=== PATIENT | female | born 1990 | race Caucasian/White ===

== ENCOUNTER → 2017-07-05 | Day surgery (SDC) | payer MEDICARE, MEDICAID ==
[2017-07-05] VITALS (14 sets, daily range): BP systolic 121–146; BP diastolic 75–95; PULSE 80–109; RESP 12–23; O2SAT 88–97
[~2017-07-05] VITALS: Ht 162.6 cm; Wt 109.3 kg
[~2017-07-05] MED LIST: ALBU18HF INH; AMT50T PO; CHOL-4 PO; CITA20TA11 PO; CYCL10TA9 PO; Clindamycin 900 mg/50 mL D5W Premix IV ONE; Clindamycin Inj 900 MG in IV Premix 1 EACH IV SCH; Dexamethasone 4 mg/mL Inj IVPUSH PRN; Dexamethasone 4 mg/mL Inj ONE; EPHEDrine Sulfate 50 mg/mL Inj IVPUSH PRN; Glycopyrrolate 0.2 MG/ML 1mL Inj ONE; HYDR-4003 PO; Ketamine 10 mg/mL 20 mL Inj ONE; LAMO100T2 PO; LIDO15CR9 TP; LORA10CA9 PO; Lactated Ringer's 1,000 ML IV SCH; Lactated Ringer's 500 ML IV PRN; METH5TAB88 PO; MetoCLOpramide 5 mg/mL 2 mL Inj IVPUSH PRN; Neostigmine 1 mg/mL 10 mL Inj ONE; ONDA-53 PO; Ondansetron 2 mg/mL 2 mL Inj IVPUSH PRN; Ondansetron 2 mg/mL 2 mL Inj ONE; PREG100C PO; Phenylephrine 10,000 mCg/mL Inj IVPUSH PRN; RANI150C4 PO; fentaNYL-PF 50 mCg/mL 2 mL Inj IVPUSH PRN; fentaNYL-PF 50 mCg/mL 2 mL Inj ONE
[2017-07-05] MEDS: Lactated Ringer's 1,000 ML IV SCH ×2 (11:16→12:10)
--- NOTE | 2017-07-05 11:47 | PCM.HPANE ---
Patient Data Surgeon Admitting Provider: Attending Provider:Conrado Vaughn MD Primary Care Physician:Jesica Huyhn DO Other Provider:Rosie Keller Anesthesia Reason for Visit Bilateral Breast Macromastia,Back Pain,Rash Ht/WT & BMI Height (Feet): 5 Height (Inches): 4 Weight (Kilograms): 109.3 Body Mass Index 41.00 Allergies Coded Allergies: cephalexin (Verified Allergy, Severe, Anaphylaxis, 07/03/17) aripiprazole (Verified Allergy, Unknown, UNKNOWN, 07/03/17) hydromorphone (Verified Allergy, Unknown, UNKNOWN, 07/03/17) meperidine (Verified Allergy, Unknown, UNKNOWN, 07/03/17) naproxen (Verified Allergy, Unknown, UNKNOWN, 07/03/17) azithromycin (Verified Adverse Reaction, Severe, Nausea,Vomiting,Diarrhea , 07/03/17) codeine (Verified Adverse Reaction, Severe, GI issues, 07/03/17) Past Anesthesia History Anesthesia History: Positive for:: Anesthesia Reactions (quit breathing during surgery at one time), Denies:: Abnormal Airway, Difficult Intubation, Fam Anesthesia Reaction ( mother difficult to awaken), Fam Malignant Hypertherm Diabetes History Hx Diabetes?: No MRSA MRSA: No Medications Hypertension Medication: No Home Meds Incl Beta Maury: No Reported Medications Methylphenidate 5 Mg Tablet5 Mg PO PRN #60 07/05/17 Albuterol Sulfate (Ventolin HFA Inhaler)200 Puff/18 Gm Inhaler2 Puff INH Q4 PRN For Wheezing #1 INHALER Ref 0 06/29/17 Ranitidine 150 Mg [id number] Mg PO BID Ref 0 06/29/17 Ondansetron 4 Mg Tablet4 Mg PO Q4H PRN For Nausea 06/29/17 Pregabalin (Lyrica)100 Mg Ceegrms559 Mg PO BID 30 Days Ref 0 06/29/17 Loratadine 10 Mg Facmqyd86 Mg PO DAILY 06/29/17 Lidocaine 5 % Cream..g.15 Gm TP PRN For Pain 06/29/17 Lamotrigine 100 Mg Gszdbv484 Mg PO DAILY Ref 0 06/29/17 Hydrocodone-Acetaminophen 5-325 mg 1 Each Tablet2 Tablet PO Q6H PRN For Pain Ref 0 06/29/17 Cyclobenzaprine 10 Mg Kfqjds73 Mg PO QPM Spasm Ref 0 06/29/17 Cyclobenzaprine 10 Mg Yditka52 Mg PO QAM Ref 0 06/29/17 Citalopram 20 Mg Jmathb02 Mg PO DAILY Ref 0 06/29/17 Amitriptyline 50 Mg Tab50 Mg PO BID Ref 0 06/29/17 Discontinued Reported Medications Cholecalciferol (Vitamin D3) (Vitamin D3)10,000 Unit Aakbrxx27,000 Unit PO WEEKLY 06/29/17 [lidoderm ] No Conflict CheckUnknown Dose TOPICAL DAILY PRN For Pain 05/21/16 Ondansetron (Zofran)4 Mg Tablet4-8 Mg PO Q4H PRN For Nausea 05/21/16 Loratadine (Claritin)10 Mg Nqsjwsz93 Mg PO DAILY Ref 0 05/21/16 Ranitidine 300 Mg Bexdfh576 Mg PO BID Ref 0 05/21/16 Methylphenidate 5 Mg Tablet5 Mg PO BID Ref 0 05/20/16 Prazosin 5 Mg Vorusci01 Mg PO HS 30 Days 09/13/14 Ibuprofen 400 Mg Tablet1-2 Tab PO Q4-6H PRN For Pain Ref 0 09/13/14 [lidocaine 5%] No Conflict Check1 Appl TP BID PRN For Pain 09/13/14 Citalopram 20 Mg Ebuohj04 Mg PO DAILY 30 Days Ref 0 09/13/14 Cyclobenzaprine 10 Mg Blomqh87 Mg PO HS Ref 0 09/13/14 Cyclobenzaprine 10 Mg Fuqgxp65 Mg PO AM Ref 0 09/13/14 Clonidine 0.1 Mg Tablet0.1 Mg PO HS 30 Days Ref 0 09/13/14 Pregabalin (Lyrica)100 Mg Irydpue127 Mg PO BID 30 Days Ref 0 09/13/14 Amitriptyline 50 Mg Tab50 Mg PO BID Ref 0 09/13/14 Albuterol Sulfate (Ventolin HFA Inhaler)200 Puff/18 Gm Inhaler2 Puff INH Q4-6H PRN For Shortness of Breath #1 INHALER Ref 0 09/13/14 Discontinued Scripts Hydrocodone-Acetaminophen 7.5-325 mg 1 Each Tablet1-2 Tablet PO Q4H PRN For Pain #15 TABLET Ref 0 Prov:Kyle Centeno MD 05/22/16 History History of ENT Problems?: Yes HEENT History: Positive for:: Sinus Problem Denies:: Abnormal Airway Cataracts Difficult Intubation Dysphagia Glaucoma Hearing Problem TMJ Denture Type: None Teeth Condition: Broken Teeth No Teeth Hx of Heart Problems?: No Cardiovascular History: Positive for:: Chest Pain (possibly related to stress) Denies:: AICD Abdominal Aortic Aneurism Atrial Fibrillation Edema Heart Murmur Hypertension Irregular Heartbeat Valvular Heart Disease Hx of Respiratory Problem?: Yes Respiratory History: Positive for:: Asthma (sports induced ) Cough Dyspnea (BRANDON) Use of Inhalers / NEBS Denies:: COPD Emphysema Oxygen Administration Pneumonia Tuberculosis Use of C-PAP Machine Hx Neurologic Problems?: Yes Neurological History: Positive for:: Dizziness Headaches (migraines daily ) Denies:: Alzheimer's Disease CVA Multiple Sclerosis Parkinson's Disease Seizures Hx of GI Problems?: Yes Hx of Problems?: No Genitourinary History: Denies:: Kidney Stones Urinary Tract Infection (prior hx of ) Female Hx: Positive for:: Problems with Breasts? (macromastia current admission problem) Denies:: Currently Skin History: Denies:: History Skin Disorders? Pressure Ulcers Hx Musculoskeletal Problems?: Yes Musculoskeletal History: Positive for:: Fibromyalgia Denies:: Back Injury Degenerative Joint Musculoskeletal Trauma Myasthenia Gravis Osteoarthritis Hx of Psycho/Social Problems?: Yes Psycho Social History: Positive for:: Anxiety (PTSD) Hx Depression Denies:: Bipolar Disorder Hx Surgeries?: Yes (nash, tonsil, rt wrist ) Hx Any Other Health Problems?: Yes Other History: Positive for:: Thyroid Disease Denies:: Cancer Endocrine Disease Hospitalization History Blood Transfusions: Positive for:: Accept Blood Products? Denies:: Blood Transfusions Hx Diabetes: No Hx Alcohol Use: NoHx Substance Use: No Smoking Status: Never Smoker Have You Smoked inLast 12 mo: No Stop/Bang S-Snoring: Do You Snore Loudly: No T-Tired: feel tired, fatigued: No O-Obsered: Observed not breath: No P-Blood Pressure: treated: No B- Body Mass Index > 35 kg/m2: Yes A- Age over 50: No N- Neck Large Circumference: Yes Risk Assessment Category Category 1A: Patient has history of documented sleep apnea, and HAS NOT received any narcotic, sedative or anesthesia administration during this stay. Category 1B: Patient has history of documented sleep apnea, and HAS received any narcotic , sedative or anesthesia administration during this stay Category 2: Patient has SUSPECTED Obstructive Sleep Apnea, and HAS received any narcotic , sedative or anesthesia administration during this stay. Category 3: Patient has SUSPECTED Obstructive Sleep Apnea and HAS NOT received narcotic, sedative or anesthesia administration during this stay. Category 4: Outpatient in Procedural Areas with known sleep apnea or who screen positive for High Risk via the STOP/BANG questionnaire. Exam Exam Vital Signs Vital Signs Date Time Temp Pulse Resp B/P Pulse Ox O2 Delivery O2 Flow Rate FiO2 07/05/17 11:43 35.8 109 20 141/79 95 Room Air General Appearance: Alert, Oriented X3, Cooperative, No Acute Distress HEENT/AIRWAY: MP 3 Lungs: Normal Air Movement Heart: Regular Rate/Rhythm Meds/Labs/Diagnostics Admission Meds Current Medications Lactated Ringer's (Lr) 1,000 ml @ 120 mls/hr Q8H20M IV Last administered on t 11:16; Start 07/05/17 at 05:00; Stop 07/05/17 at 13:19 Plan Impression Patient chart reviewed, patient interviewed and anesthestic plan with risks, benefits, and alternatives discussed, and informed consent obtained. ASA Physical Status: ASA3 Severe Disease Anesthetic Plan: GA Bene/Risks/Altern/Consents: Yes HP Complete Prior to Induction: Yes Esteban Valdovinos MD Jul 05, 2017 11:47
[2017-07-05] MEDS: oxyCODONE-Acetamin 5-325 mg Tablet PO PRN ×2 (15:28→16:22)
--- NOTE | 2017-07-05 15:53 | PCM.ANEP1 ---
Post Anesthesia PACU Phase 1 Assessment Vital Signs Vital Signs Date Time Temp Pulse Resp B/P Pulse Ox O2 Delivery O2 Flow Rate FiO2 07/05/17 15:45 86 22 129/76 97 OxyMask 6 07/05/17 15:30 36.5 88 14 127/77 94 OxyMask 07/05/17 15:20 99 20 130/83 91 OxyMask 07/05/17 15:15 99 14 133/75 91 OxyMask 07/05/17 15:10 99 18 137/83 88 Nasal Cannula 5 07/05/17 15:00 95 19 132/83 93 Simple Mask 07/05/17 14:50 99 18 140/86 92 Simple Mask 07/05/17 14:45 109 21 131/81 92 Simple Mask 07/05/17 14:40 109 23 137/86 90 Simple Mask 10 07/05/17 14:35 36.4 109 22 146/81 90 Simple Mask 10 07/05/17 11:43 35.8 109 20 141/79 95 Room Air Anesthetic Administered: GA Level of Alertness: Awake, talking Pain: No Nausea or Vomiting: No CV Function & Hydration Stable: Yes Airway Device: None Lungs: Normal Air Movement PACU Phase 2 Assessment Complications: No Follow up Care: N/A Patient Instructions Provided: N/A Esteban Valdovinos MD Jul 05, 2017 15:53
--- NOTE | 2017-07-07 12:29 | OP ---
[address] [address] OPERATIVE REPORT PATIENT: CARRINGTON RESENDEZ : 1990 MR#: [id number] ADMIT: 07/05/2017 JOB ID: [id number] DATE OF SURGERY: 07/05/2017 PREOPERATIVE DIAGNOSIS(ES): 1. Bilateral symptomatic macromastia. 2. Thoracic back pain. 3. Rash. POSTOPERATIVE DIAGNOSIS(ES): 1. Bilateral symptomatic macromastia. 2. Thoracic back pain. 3. Rash. PROCEDURE: Bilateral breast reduction. SURGEON: Conrado Vaughn MD TRAUMA COORDINATOR: Ayush Nicole PA-C who was present for the necessary retraction, exposure, and closure. ANESTHESIA: General anesthesia. ESTIMATED BLOOD LOSS: 40 mL. COMPLICATIONS: None apparent. SPECIMEN: Bilateral breast tissue to Pathology. Right side weighing 1.45 kg and left side 0.92 kg. DRAINS: Bilateral 15 round Sebas drains, one each side. INDICATIONS FOR PROCEDURE: This is a 27-year-old female patient with a chronic symptomatic bilateral macromastia with significant neck pain and back pain. The patient also has a rash as well as bra strap grooving. Her symptoms have been refractory to routine management and conservative treatment. At this point bilateral breast reductions are indicated. PROCEDURE AND FINDINGS: The patient was identified in the preoperative area and the surgical side was well marked. With the patient in sitting position, I marked the patient's sternal notch and midline, as well as bilateral inframammary folds. Figueroa pattern incisions were also marked with the new nipple position at 22 cm from the sternal notch. The Figueroa limbs were 8 cm each. The patient was then taken back to the operating room and placed supine on the operating table. Appropriate time-outs were taken. General anesthesia was induced smoothly. The patient was then prepped and draped in the usual sterile manner. Using a 42 mm nipple sizer a new nipple-areolar complex was marked. The inferior pedicle was then designed that is 10 cm at its base. Incisions were then made around the new nipple-areolar complex and the inferior pedicle. Intervening skin was de-epithelialized. Incisions were then made around the rest of the Figueroa pattern incision with a #15 blade down into the subcutaneous tissue. I first turned my attention to elevating the skin flaps. Using electrocautery, the medial soft superior skin flap was elevated approximately 2 cm thick. As I approached the chest wall, the flap was thickened to approximately 3 cm as I approached the pectoralis major fascia. Laterally, the skin flap was elevated off of the breast capsule. I then turned my attention to developing the inferior pedicle. Incisions were then deepened down around the pedicle toward the chest wall. Medially and laterally I flared the dissection outward to capture more perforators. Medially the dissection was carried down to the pec fascia and laterally dissection was carried down to the chest wall. Superiorly I carried the dissection through the breast tissue until I encountered the posterior breast capsule, which was then followed down to the chest wall. The skin and soft tissue between the pedicle dissection and the skin flap dissection was then elevated off the chest wall and passed off to Pathology as a specimen. Hemostasis was obtained with electrocautery. The incisions were then temporarily stapled together. Using a 42 mm nipple sizer, the new nipple areolar complex keyhole was then marked 7 cm from the inframammary fold. Incision was made with a #15 blade through the skin. I then deepened the incision through the skin flap with electrocautery, allowing the nipple to be externalized. I then turned my attention to the left breast, where a similar reduction was carried out. Again, a new nipple-areolar complex was marked with a 42 mm nipple sizer and the inferior pedicle designed with a 10 cm base. Intervening skin was de-epithelialized. The skin flaps were then elevated in a similar manner to the right side. The inferior pedicle was then developed in a similar manner to the left side. The breast tissue and soft tissue between the inferior pedicle and the skin flap was then elevated off the chest wall and passed off to Pathology as a specimen. Hemostasis was obtained with electrocautery. The incisions were then stapled together temporarily. A new nipple-areolar complex keyhole was then marked with a 42 mm nipple sizer centered at 7 cm from the inframammary fold. The keyhole was removed and the nipple externalized. At this point the breasts had similar volume and contour. A #15 round Sebas drain was then placed into each surgical site, exiting on the lateral end of the inframammary incision. The drains were secured with a 3-0 nylon drain stitch. The incisions were then reapproximated, first with a layer of 3-0 Monocryl deep dermal suture, followed by 4-0 Monocryl running subcuticular suture. The patient tolerated the procedure well. Needle count, sponge count, and instrument counts were correct at the end of the procedure. The patient was transported to recovery in stable condition. Total resected specimen was 1.45 kg on the right side and 0.82 kg on the left side.
== END | disposition home or self-care (01) ==
LOC: SAS 11:04
PROVIDERS: ATTEND Plastic Surgery
PROC: 0HBV0ZZ Excision of Bilateral Breast, Open Approach (ICD-10-PCS; principal; 2017-07-05 13:00)
DX: N62 Hypertrophy of breast (principal); M54.6 Pain in thoracic spine; R21 Rash and other nonspecific skin eruption; M54.2 Cervicalgia; G89.29 Other chronic pain; F41.8 Other specified anxiety disorders; F43.10 Post-traumatic stress disorder, unspecified; M79.7 Fibromyalgia
CPT/HCPCS: 19318; J1100; J1885; J2250; J2270; J2405; J2710; J3010; J3490; J7120

== ENCOUNTER 2017-07-18 15:15 | Emergency (ER) | payer MEDICARE, MEDICAID ==
[~2017-07-18] VITALS: Ht 165.1 cm; Wt 110.0 kg
[~2017-07-18 15:15] MED LIST changes: -CHOL-4 PO; -Clindamycin 900 mg/50 mL D5W Premix IV ONE; -Clindamycin Inj 900 MG in IV Premix 1 EACH IV SCH; -Dexamethasone 4 mg/mL Inj IVPUSH PRN; -Dexamethasone 4 mg/mL Inj ONE; -EPHEDrine Sulfate 50 mg/mL Inj IVPUSH PRN; -Glycopyrrolate 0.2 MG/ML 1mL Inj ONE; -Ketamine 10 mg/mL 20 mL Inj ONE; -Lactated Ringer's 1,000 ML IV SCH; -Lactated Ringer's 500 ML IV PRN; -MetoCLOpramide 5 mg/mL 2 mL Inj IVPUSH PRN; -Neostigmine 1 mg/mL 10 mL Inj ONE; -Ondansetron 2 mg/mL 2 mL Inj IVPUSH PRN; -Ondansetron 2 mg/mL 2 mL Inj ONE; -Phenylephrine 10,000 mCg/mL Inj IVPUSH PRN; -fentaNYL-PF 50 mCg/mL 2 mL Inj IVPUSH PRN; -fentaNYL-PF 50 mCg/mL 2 mL Inj ONE
[2017-07-18 15:37] VITALS: BP 126/87; PULSE 116; RESP 16; O2SAT 96
--- NOTE | 2017-07-18 21:14 | ED.REPORT ---
HPI-Trauma Minor / Fall Peds Date of Service Jul 18, 2017 ED Provider: Huy Zabala MD Pt is a 27 y/o female with a history of chronic migraines and fibromyalgia who presents to the ED from s/p falling at . She states that she was getting a post-surgical exam (breast reduction) on a table when she stepped off and tripped. She fell and hit a chair and the ground, and is unaware if she hit her head. Additional symptoms include pain to bilateral ankels, bilateral knees, R hip, R arm, stomach, L ribs, L clavicle, and headache. She denies __. leg tweaked fell on to side righthips knees and ankles neck pain incision hurts hit on L side ribs sore S Nursing Notes Stated Complaint: FELL OFF TABLE AT DOCTORS OFFICE Chief Complaint: Multiple Trauma/Fall Nursing Notes Reviewed: Yes Allergies: Coded Allergies: cephalexin (Verified Allergy, Severe, Anaphylaxis, 07/18/17) aripiprazole (Verified Allergy, Unknown, UNKNOWN, 07/18/17) hydromorphone (Verified Allergy, Unknown, UNKNOWN, 07/18/17) meperidine (Verified Allergy, Unknown, UNKNOWN, 07/18/17) naproxen (Verified Allergy, Unknown, UNKNOWN, 07/18/17) azithromycin (Verified Adverse Reaction, Severe, Nausea,Vomiting,Diarrhea , 07/18/17) codeine (Verified Adverse Reaction, Severe, GI issues, 07/18/17) Scheduled Amitriptyline (Amitriptyline) 50 Mg Tab 50 MG PO BID Citalopram (Citalopram) 20 Mg Tablet 40 MG PO DAILY Cyclobenzaprine (Cyclobenzaprine) 10 Mg Tablet 10 MG PO QAM Cyclobenzaprine (Cyclobenzaprine) 10 Mg Tablet 20 MG PO QPM Lamotrigine (Lamotrigine) 100 Mg Tablet 100 MG PO DAILY Loratadine (Loratadine) 10 Mg Capsule 10 MG PO DAILY Methylphenidate (Methylphenidate) 5 Mg Tablet 5 MG PO PRN Pregabalin (Lyrica) 100 Mg Capsule 200 MG PO BID Ranitidine (Ranitidine) 150 Mg Capsule 300 MG PO BID Scheduled PRN Albuterol Sulfate (Ventolin HFA Inhaler) 200 Puff/18 Gm Inhaler 2 PUFF INH Q4 PRN PRN For Wheezing Hydrocodone-Acetaminophen 5-325 mg (Hydrocodone-Acetaminophen 5-325 mg) 1 Each Tablet 2 TABLET PO Q6H PRN PRN For Pain Lidocaine (Lidocaine) 5 % Cream..g. 15 GM TP PRN For Pain Ondansetron (Ondansetron) 4 Mg Tablet 4 MG PO Q4H PRN PRN For Nausea Past Medical History Smoking History Never Smoker Physical Exam Initial Vital Signs Vital Signs (First) Date Time Temp Pulse Resp B/P Pulse Ox O2 Delivery O2 Flow Rate FiO2 07/18/17 15:37 37.3 116 16 126/87 96 Room Air Discharge & Departure Referrals: Jesica Huynh DO (PCP) Huy Zabala MD Jul 18, 2017 21:14 Arlene Palomares Jul 18, 2017 21:18
--- NOTE | 2017-07-18 21:19 | ED.REPORT ---
HPI-Trauma Minor / Fall Date of Service Jul 18, 2017 ED Provider: Huy Zabala MD Pt is a 27 y/o female with a history of chronic migraines, and fibromyalgia who presents to the ED from s/p falling at earlier today. She states that she was getting a post-surgical exam for a breast reduction on a table when she stepped off the table and tripped after her sandal got caught. She states that when she fell, her legs went in the air and she grabbed a chair. Pt reports falling to the ground on her left side and is unaware if she hit her head during the fall. Additional symptoms include pain to bilateral ankles, pain to bilateral knees, right hip pain, left rib pain, neck pain, and headache. She denies loss of consciousness. Nursing Notes Stated Complaint: FELL OFF TABLE AT DOCTORS OFFICE Chief Complaint: Multiple Trauma/Fall Nursing Notes Reviewed: Yes Allergies: Coded Allergies: cephalexin (Verified Allergy, Severe, Anaphylaxis, 07/18/17) aripiprazole (Verified Allergy, Unknown, UNKNOWN, 07/18/17) hydromorphone (Verified Allergy, Unknown, UNKNOWN, 07/18/17) meperidine (Verified Allergy, Unknown, UNKNOWN, 07/18/17) naproxen (Verified Allergy, Unknown, UNKNOWN, 07/18/17) azithromycin (Verified Adverse Reaction, Severe, Nausea,Vomiting,Diarrhea , 07/18/17) codeine (Verified Adverse Reaction, Severe, GI issues, 07/18/17) Scheduled Amitriptyline (Amitriptyline) 50 Mg Tab 50 MG PO BID Citalopram (Citalopram) 20 Mg Tablet 40 MG PO DAILY Cyclobenzaprine (Cyclobenzaprine) 10 Mg Tablet 10 MG PO QAM Cyclobenzaprine (Cyclobenzaprine) 10 Mg Tablet 20 MG PO QPM Lamotrigine (Lamotrigine) 100 Mg Tablet 100 MG PO DAILY Loratadine (Loratadine) 10 Mg Capsule 10 MG PO DAILY Methylphenidate (Methylphenidate) 5 Mg Tablet 5 MG PO PRN Pregabalin (Lyrica) 100 Mg Capsule 200 MG PO BID Ranitidine (Ranitidine) 150 Mg Capsule 300 MG PO BID Scheduled PRN Albuterol Sulfate (Ventolin HFA Inhaler) 200 Puff/18 Gm Inhaler 2 PUFF INH Q4 PRN PRN For Wheezing Hydrocodone-Acetaminophen 5-325 mg (Hydrocodone-Acetaminophen 5-325 mg) 1 Each Tablet 2 TABLET PO Q6H PRN PRN For Pain Lidocaine (Lidocaine) 5 % Cream..g. 15 GM TP PRN For Pain Ondansetron (Ondansetron) 4 Mg Tablet 4 MG PO Q4H PRN PRN For Nausea General Time Seen by MD: 21:11 Chief Complaint Fall Hx Obtained From: Patient Arrived By: Walk-in Onset Occurred: Just prior to arrival Symptom Duration: Constant Caused by: Fall on ground Quality: Painful Severity: Current: Mild Severity: Maximum: Moderate Recent Healthcare: Recent doctor visit, Recent hospitalization Similar Sx Previous: No Past Medical History Past Medical History anxiety fibromyalgia migraines Reports: Hypertension Reports: Depression Past Surgical History Breast reduction surgery Right wrist Reports: Cholecystectomy, Tonsillectomy Smoking History Never Smoker Social History Other Social History: Good social support Ambulatory Status Independent Review of Systems Pain to bilateral ankles Pain to bilateral knees Right hip pain Left rib pain Constitutional: Denies: Chills, Fever Respiratory: Denies: Non-productive cough, Prod cough, clear, Shortness of breath Musculoskeletal: Reports: Neck pain Neurologic: Reports: Headache, Denies: Change LOC, Focal weakness, Numbness Complete sys rev & neg: except as marked. Physical Exam Initial Vital Signs Vital Signs (First) Date Time Temp Pulse Resp B/P Pulse Ox O2 Delivery O2 Flow Rate FiO2 07/18/17 15:37 37.3 116 16 126/87 96 Room Air Initial VS: Reviewed Head / Eyes: Atraumatic, Normocephalic Skin: Warm, Dry, No cyanosis Neurologic: Alert, Oriented, Nonfocal Psychiatric: Mood/affect normal, Behavior normal, Normal thought content General/Constitutional: Awake, Alert, No acute distress Neck: Supple, Full range of motion ENT: Atraumatic, Airway patent Dental / Gums: Positive: Dentition poor Respiratory / Chest: Atraumatic, Breath sounds NL, Breath sounds = bilat, No respiratory distress Tenderness to palpation on inferior left ribs at lateral axillary line, no ecchymosis Cardiovascular: Heart rate NL, Regular rhythm, Heart sounds NL Abdomen: Soft, Non-tender Lower Extremity / Pelvis / MS: Full range of motion, Neurologic intact, Vascular intact Right hip tenderness to palpation, moves freely Mild contusion to left knee Right knee unremarkable Ankle / Foot: Non-tender, Neurologic intact, Vascular intact Interpretation & Diagnostics X-Ray Interpretation Xray Interpretation: Right Knee X-Ray: No acute fracture findings. X-Ray Ordered: Knee right Interpretation / Wet Read by: Wet read ED physician Xray Interpretation: Left Knee X-Ray: No acute fracture findings. X-Ray Ordered: Knee left Interpretation / Wet Read by: Wet read ED physician Xray Interpretation: Hip/Pelvis X-Ray: No acute fracture findings. Interpretation / Wet Read by: Wet read ED physician Xray Interpretation: Right Ankle X-Ray: No acute fracture findings. X-Ray Ordered: Ankle right Interpretation / Wet Read by: Wet read ED physician Xray Interpretation: Left Ankle X-Ray: No acute fracture findings. X-Ray Ordered: Ankle left Interpretation / Wet Read by: Wet read ED physician Xray Interpretation: Rib X-Ray: No acute fracture findings. Interpretation / Wet Read by: Wet read ED physician Re-Eval/Medical Decision Med Decision/Clinical Course 27-year-old had a fall yesterday getting down from exam table after tripping. She has pain to knees, ankles, right hip, and left ribs. All of these were negative by x-ray. Exam is unrevealing except for tenderness of the various points with no apparent deformity, and no particular limitation range of motion, no swelling visible, no other significant findings. Home with a walker, ongoing Vicodin, which she already has. Discharged in stable condition. Source of Hx: Old records Re-Evaluation/Progress : Time of Eval: 23:35 Patient Status: Condition improved Re-Evaluation/Progress Note: Patient rechecked. Discussed plan for discharge. Patient understands and agrees with plan. F/U instructions and RTER warnings given. All questions addressed at this time. Counseled Regarding: Diagnosis, Lab results, Need for follow-up, When/why to return to ED Discharge & Departure Impression: Primary Impression: Contusion of ribs Encounter type: initial encounter Laterality: unspecified laterality Qualified Code: S20.219A - Contusion of unspecified front wall of thorax, initial encounter Additional Impressions: Contusion of knee, right Contusion of knee, left Disposition: Home Discharge Condition All VS Reviewed: Yes Condition: Stable Patient Instructions: Contusion in Adults (ED), Rib Contusion (ED) Additional Instructions: There is nothing fractured that we can see on the x-rays. Follow-up with your doctor in the office. For the first twenty-four hours. Ice to the knees and ankles. Return if any immediate issues. Use a walker if needed to aid your ambulation Referrals: Jesica Huynh DO (PCP) Scribe Attestation Portions of this note were transcribed by Arlene Palomares. I, Dr. Zabala, personally performed the history, physical exam and medical decision-making; I reviewed and confirmed the accuracy of the information in the transcribed note. copies to: Jesica Huynh Christopher W MD Jul 18, 2017 21:19 Arlene Palomares Jul 18, 2017 21:25
[2017-07-18 23:58] VITALS: BP 122/84; PULSE 97; RESP 16; O2SAT 97
--- NOTE | 2017-07-19 09:44 | DRSVH ---
PROCEDURE: X-RAY RIGHT KNEE, THREE VIEWS ([id number]) INDICATIONS: fall TECHNIQUE: 3 views of the knee were acquired. COMPARISON: None. FINDINGS: Bones: No fractures or dislocations. No suspicious bony lesions. Soft tissues: No joint effusion. No suspicious soft tissue calcifications. IMPRESSION: No displaced fracture seen. If there is continued pain, followup exam or additional mile ging such as MRI or CT could be performed for further assessment. Dictated by: Brandon Tapia RRElle Interpreted: Tavia Go MD on 07/19/2017 at 9:43 Transcribed by: SEMAJ on 07/19/2017 at 9:44 Approved by: Tavia Go M.D. on 07/19/2017 at 20:04
--- NOTE | 2017-07-19 09:45 | DRSVH ---
PROCEDURE: X-RAY RIGHT ANKLE, TWO VIEWS ([id number]) INDICATIONS: fall TECHNIQUE: 2 views of the ankle were acquired. COMPARISON: None. FINDINGS: Bones: No fractures or dislocations. Ankle mortise is normally aligned. No suspicious bony lesions . Soft tissues: No tibiotalar joint effusion. Achilles tendon appears normal. IMPRESSION: No displaced fracture seen. If there is continued pain, followup exam or additional mile ging such as MRI or CT could be performed for further assessment. Dictated by: Brandon Tapia [facility] Interpreted: Tavia Go MD on 07/19/2017 at 9:44 Transcribed by: SEMAJ on 07/19/2017 at 9:44 Approved by: Tavia Go M.D. on 07/19/2017 at 20:04
--- NOTE | 2017-07-19 10:50 | DRSVH ---
PROCEDURE: X-RAY LEFT ANKLE, TWO VIEWS ([id number]) INDICATIONS: FALL. TECHNIQUE: Three views of the ankle were acquired. COMPARISON: None. FINDINGS: Bones: No fractures or dislocations. Ankle mortise is normally aligned. No suspicious bony lesions . Soft tissues: No tibiotalar joint effusion. Achilles tendon appears normal. IMPRESSION: 1. No displaced fracture seen. If there is continued pain, followup exam or additional imaging such as MRI or CT could be performed for further assessment. Dictated by: Brandon PIERCE Interpreted: Tavia Go MD on 07/19/2017 at 9:45 Transcribed by: HARISH on 07/19/2017 at 13:50 Approved by: Tavia Go M.D. on 07/19/2017 at 20:04
--- NOTE | 2017-07-19 20:05 | DRSVH ---
PROCEDURE: X-RAY LEFT KNEE, THREE VIEWS ([id number]) INDICATIONS: fall TECHNIQUE: 3 views of the knee were acquired. COMPARISON: None. FINDINGS: Bones: No fractures or dislocations. No suspicious bony lesions. Soft tissues: No joint effusion. No suspicious soft tissue calcifications. IMPRESSION: No displaced fracture seen. If there is continued pain, followup exam or additional mile ging such as MRI or CT could be performed for further assessment. Dictated by: Brandon PIERCE Interpreted: Tavia Go MD on 07/19/2017 at 9:43 Approved by: Tavia Go M.D. on 07/19/2017 at 20:03
--- NOTE | 2017-07-19 20:05 | DRSVH ---
PROCEDURE: X-RAY PELVIS W/LAT HIP (RT) ([id number]) INDICATIONS: fall TECHNIQUE: AP pelvis with lateral view(s) of the right hip(s). COMPARISON: None. FINDINGS: Bones: No fractures or dislocations. Pelvic ring appears intact. No suspicious bony lesions. Soft tissues: The visualized bowel gas pattern is normal. No suspicious soft tissue calcifications. IMPRESSION: No displaced fracture seen. If there is continued pain, followup exam or additional mile ging such as MRI or CT could be performed for further assessment. Dictated by: Brandon Tapia [facility] Interpreted: Tavia Go MD on 07/19/2017 at 9:41 Approved by: Tavia Go M.D. on 07/19/2017 at 20:03
--- NOTE | 2017-07-19 20:05 | DRSVH ---
PROCEDURE: X-RAY LEFT RIBS, TWO VIEWS ([id number]) INDICATIONS: fall TECHNIQUE: 3 views of the left ribs were acquired. COMPARISON: None. FINDINGS: Surgical changes and devices: Cholecystectomy clips. Bones and chest wall: No fractures or dislocations. No suspicious bony lesions. Overlying soft tis sues appear unremarkable. Lungs and pleura: The visualized lung appears clear. No pleural effusions or pneumothorax are visib le. IMPRESSION: No displaced left rib fractures. Dictated by: Brandon PIERCE Interpreted: Tavia Go MD on 07/19/2017 at 9:42 Approved by: Tavia Go M.D. on 07/19/2017 at 20:03
== END 2017-07-18 23:58 | disposition home or self-care (01) ==
LOC: SED 15:15
DX: S20.212A Contusion of left front wall of thorax, initial encounter (principal); S80.01XA Contusion of right knee, initial encounter; S80.02XA Contusion of left knee, initial encounter; W01.190A Fall on same level from slipping, tripping and stumbling with subsequent striking against furniture, initial encounter; Y93.89 Activity, other specified; Y92.532 Urgent care center as the place of occurrence of the external cause; Y99.8 Other external cause status; M25.572 Pain in left ankle and joints of left foot; M25.551 Pain in right hip; M54.2 Cervicalgia; R51 Headache; I10 Essential (primary) hypertension; F41.8 Other specified anxiety disorders; M79.7 Fibromyalgia; G43.909 Migraine, unspecified, not intractable, without status migrainosus; Z90.49 Acquired absence of other specified parts of digestive tract; Z98.890 Other specified postprocedural states; Z88.1 Allergy status to other antibiotic agents; Z88.5 Allergy status to narcotic agent; Z88.8 Allergy status to other drugs, medicaments and biological substances